=== PATIENT | female | born 1985 | race African-American/Black ===

== ENCOUNTER 2016-10-01 09:05 | Emergency (ER) | payer MEDICAID, OTHER ==
[~2016-10-01] VITALS: Ht 157.5 cm; Wt 80.0 kg
[~2016-10-01 09:05] MED LIST: AMLO5TAB22 PO; CYCL-36 PO; NAPR-576 PO
[2016-10-01 09:07] VITALS: BP 178/90; PULSE 84; RESP 16; TEMP 97.9; O2SAT 95
[2016-10-01] MEDS ORDERED: AMLO2.5T PO (09:18)
--- NOTE | 2016-10-01 09:37 | PD ---
HPI Chief Complaint: Headache Time Seen by Provider: 09:27 Travel History International Travel<30 days: No Contact w/Intl Traveler<30days: No Traveled to known affect area: No History of Present Illness HPI The patient was seen and examined in the presence of the nurse. This patient complains of migraine headache. She has a right sided throbbing with nausea and vomiting. This is very typical of her chronic migraine headache. No head injury or fever or neck pain. No alleviating factors. Symptoms severity is moderate. Duration is 3 days PFSH Past Medical History Asthma: Yes Blood Disorders: No Anxiety: No Depression: Yes Cancer: No Cardiovascular Problems: Yes (HTN) Diminished Hearing: No Endocrine: No Gastrointestinal Disorders: No Genitourinary: Yes (h/o utis) Hypertension: Yes Immune Disorder: No Implanted Vascular Access Dvce: Yes Kidney Stones: Yes Musculoskeletal: No Neurologic: No Psychiatric: Yes Reproductive: No Respiratory: No Immunizations Current: No Migraines: Yes Sleep Apnea: No Thyroid Disease: No ?: Not LMP: 09/13/16 Menopausal: No : 2 Para: 1 Miscarriage: 1 Dilation and Curettage (D&C): Yes Past Surgical History Surgical History: No Previous Surgery Abdominal Surgery: No AICD: No Arteriovenous Shunt: No Cardiac Surgery: No Ear Surgery: No Endocrine Surgery: No Eye Surgery: No Genitourinary Surgery: No Gynecologic Surgery: No Insulin Pump: No Joint Replacement: No Oral Surgery: No Pacemaker: No Thoracic Surgery: No Other Surgery: No Social History Alcohol Use: No Tobacco Use: No Substance Use: No Allergies-Medications (Allergen,Severity, Reaction): Coded Allergies: Penicillin (Verified Allergy, Severe, Rash, 07/29/15) Amoxicillin (Verified Allergy, Intermediate, Rash, 07/29/15) Reported Meds & Prescriptions Reported Meds & Active Scripts Active Reported Amlodipine (Amlodipine Besylate) 2.5 Mg Tab 2.5 Mg PO DAILY Review of Systems General / Constitutional: No: Fever Eyes: No: Visual changes HENT: Positive: Headaches Cardiovascular: No: Chest Pain or Discomfort Respiratory: No: Shortness of Breath Gastrointestinal: Positive: Nausea, Vomiting, No: Abdominal Pain Genitourinary: No: Dysuria Musculoskeletal: No: Pain Skin: No Rash Neurologic: Positive: Headache, No: Weakness Psychiatric: No: Depression Endocrine: No: Polydipsia Hematologic/Lymphatic: No: Easy Bruising Physical Exam Narrative GENERAL: Well-nourished, well-developed patient with headache and nausea . SKIN: Focused skin assessment reveals no rash and nodules. Skin is Warm and dry. HEAD: Atraumatic. Normocephalic. EYES: Pupils equal and round. No scleral icterus. No injection or drainage. ENT: No nasal bleeding or discharge. Mucous membranes pink and moist. Throat clear NECK: Trachea midline. No JVD. No meningeal signs CARDIOVASCULAR: Regular rate and rhythm. No murmur appreciated. RESPIRATORY: No accessory muscle use. Clear to auscultation. Breath sounds equal bilaterally. GASTROINTESTINAL: Abdomen soft, non-tender, nondistended. Hepatic and splenic margins not palpable. MUSCULOSKELETAL: No obvious deformities. No clubbing. No cyanosis. No edema. NEUROLOGICAL: Awake and alert. No obvious cranial nerve deficits. Motor grossly within normal limits. Normal speech. PSYCHIATRIC: Appropriate mood and affect; insight and judgment normal. Data Data Last Documented VS Vital Signs Date Time Temp Pulse Resp B/P Pulse Ox O2 Delivery O2 Flow Rate FiO2 10/01/16 09:16 18 Room Air 10/01/16 09:07 97.9 84 178/90 95 Orders Ondansetron Inj (Zofran Inj) (10/01/16 09:45) Morphine Inj (Morphine Inj) (10/01/16 09:45) Sodium Chlor 0.9% 1000 Ml Inj (Ns 1000 M (10/01/16 09:45) MDM Medical Decision Making Medical Screen Exam Complete: Yes Emergency Medical Condition: Yes Medical Record Reviewed: Yes Differential Diagnosis Differential diagnosis includes migraine, tension headache, cluster headache, meningitis. Narrative Course I have reviewed the patient's electronic medical record. Patient's been seen here for migraine headache multiple times over the years Patient is neurologically intact. Sedation not consistent with subarachnoid hemorrhage or stroke or meningitis. There was no thunderclap onset. I don't feel imaging is indicated at this time I gave her injection of Zofran and morphine as well as a liter of saline IV On recheck she is sound asleep Stable for outpatient follow-up Diagnosis Primary Impression: Migraine headache Qualified Code: G43.109 - Migraine with aura and without status migrainosus, not intractable Additional Instructions: The patient was advised to follow up with their physician and return if they worsen. Med/Other Pt SpecificInfo: Other Disposition: 01 DISCHARGE HOME Condition: Stable Piyush Montaño MD Oct 01, 2016 09:37
[2016-10-01] MEDS ORDERED: ONDANSETRON HCL 4 MG/2 ML VIAL IV ONE (09:45)
[2016-10-01] MEDS ORDERED: MORPHINE SULFATE 4 MG/ML INJ IV PUSH ONE (09:45)
[2016-10-01] MEDS ORDERED: SODIUM CHLOR 0.9% 1000 ML INJ 1,000 ML IV ONE (09:45)
[2016-10-01 12:01] VITALS: BP 134/92
== END 2016-10-01 12:08 | disposition home or self-care (01) ==
LOC: NEPD 09:05
DX: G43.109 Migraine with aura, not intractable, without status migrainosus (principal)
CPT/HCPCS: 96374; 96375; 99284; J2270; J2405; J7030

== ENCOUNTER 2016-11-28 09:02 | Emergency (ER) | payer MEDICAID ==
[~2016-11-28] VITALS: Ht 157.5 cm; Wt 75.0 kg
[~2016-11-28 09:02] MED LIST changes: +AMLO2.5T PO; -AMLO5TAB22 PO; -CYCL-36 PO; -NAPR-576 PO
[2016-11-28 09:05] VITALS: BP 198/103; PULSE 114; RESP 15; TEMP 98.7; O2SAT 99
--- NOTE | 2016-11-28 10:28 | PD ---
HPI Chief Complaint: Syncope/Near-Syncope Time Seen by Provider: 10:08 Travel History International Travel<30 days: No Contact w/Intl Traveler<30days: No Traveled to known affect area: No History of Present Illness HPI patient is a 30-year-old female presents emergency department for second evaluation of syncope in the past few days. Patient states that she feels headache coming on and then has been passing out and this is happened 3 days in a row at least 3 times a day. He states he is only out for a few seconds at a time. Patient states his been happening over the past 3 days and is causing her some anxiety. She was worked up at [facility] yesterday and states she has work and EKG and a CAT scan all of which was negative and she was told "there is nothing wrong with me" and discharge. Symptoms are moderate, resolved , no associated signs and symptoms, duration is 3 days. Patient denies and chest pain shortness of breath abdominal pain nausea vomiting diarrhea headaches or blurred vision or focalized weakness. PFSH Past Medical History Asthma: Yes Blood Disorders: No Anxiety: No Depression: Yes Cancer: No Cardiovascular Problems: Yes (HTN) Diminished Hearing: No Endocrine: No Gastrointestinal Disorders: No Genitourinary: Yes (h/o utis) Hypertension: Yes Immune Disorder: No Implanted Vascular Access Dvce: Yes Kidney Stones: Yes Musculoskeletal: No Neurologic: No Psychiatric: Yes Reproductive: No Respiratory: No Immunizations Current: No Migraines: Yes Sleep Apnea: No Thyroid Disease: No ?: Not LMP: 11/06/16 Menopausal: No : 2 Para: 1 Miscarriage: 1 Dilation and Curettage (D&C): Yes Past Surgical History Abdominal Surgery: No AICD: No Arteriovenous Shunt: No Cardiac Surgery: No Ear Surgery: No Endocrine Surgery: No Eye Surgery: No Genitourinary Surgery: No Gynecologic Surgery: No Insulin Pump: No Joint Replacement: No Oral Surgery: No Pacemaker: No Thoracic Surgery: No Other Surgery: No Social History Alcohol Use: No Tobacco Use: Yes (ECIG) Substance Use: No Allergies-Medications (Allergen,Severity, Reaction): Coded Allergies: penicillin G (Unverified Allergy, Severe, Rash, 11/28/16) amoxicillin (Unverified Allergy, Intermediate, Rash, 11/28/16) Reported Meds & Prescriptions Reported Meds & Active Scripts Active Reported Amlodipine (Amlodipine Besylate) 2.5 Mg Tab 2.5 Mg PO DAILY Review of Systems Except as stated in HPI: all other systems reviewed are Neg Physical Exam Narrative GENERAL: Well-developed well-nourished no obvious distress SKIN: Focused skin assessment warm/dry. HEAD: Atraumatic. Normocephalic. EYES: Pupils equal and round. No scleral icterus. No injection or drainage. ENT: No nasal bleeding or discharge. Mucous membranes pink and moist. NECK: Trachea midline. No JVD. CARDIOVASCULAR: Regular rate and rhythm. No murmur appreciated. RESPIRATORY: No accessory muscle use. Clear to auscultation. Breath sounds equal bilaterally. GASTROINTESTINAL: Abdomen soft, non-tender, nondistended. Hepatic and splenic margins not palpable. MUSCULOSKELETAL: No obvious deformities. No clubbing. No cyanosis. No edema. NEUROLOGICAL: Awake and alert. Cranial nerves II through XII are grossly intact and nonfocal, 5 out of 5 strength in all 4 extremities, cerebellar testing negative. PSYCHIATRIC: Appropriate mood and affect; insight and judgment normal. Data Data Last Documented VS Vital Signs Date Time Temp Pulse Resp B/P (MAP) Pulse Ox O2 Delivery O2 Flow Rate FiO2 11/28/16 10:52 11/28/16 09:05 98.7 114 15 99 Orders Orders Electrocardiogram (11/28/16 ) Diphenhydramine (Benadryl) (11/28/16 10:30) Prochlorperazine Maleate (Compazine) (11/28/16 10:30) MDM Medical Decision Making Medical Screen Exam Complete: Yes Emergency Medical Condition: Yes Differential Diagnosis Syncopal episode, arrhythmia, brain mass is already been excluded, Narrative Course Patient roomed in the emergency department, she appears well and in no distress. Reassuring physical exam. She is are he had ED workup for this yesterday. I discussed with her she needs to follow-up with a neurologist and a chemical operations and training and a primary care physician at this point. I made referrals for her at this time there is no indication for additional workup and she stable for discharge. EKG was pursued here showing normal sinus rhythm without any abnormal intervals. Discussed return to ED criteria. He is not currently having headache. Diagnosis Primary Impression: Migraine headache Qualified Codes: G43.909 - Migraine, unspecified, not intractable, without status migrainosus Additional Impression: Syncope Disposition: DISCHARGE HOME Condition: Stable Serafin Colon MD Nov 28, 2016 10:28
[2016-11-28] MEDS ORDERED: PROCHLORPERAZINE MALEATE 10 MG TAB PO ONE (10:30)
[2016-11-28] MEDS ORDERED: diphenhydrAMINE HCL 25 MG CAP PO ONE (10:30)
--- NOTE | 2016-11-28 14:41 | EKG ---
Date Performed: 11/28/2016 Time Performed: 09:24:16 PTAGE: 30 years EKG: SINUS BRADYCARDIA BORDERLINE ECG PREVIOUS TRACING : 07/03/2009 11.01 Compared to prior tracing no significant change DOCTOR: Eugene Lea Interpretating Date/Time 11/28/2016 14:39:50
== END 2016-11-28 10:55 | disposition home or self-care (01) ==
LOC: NEPD 09:02
DX: G43.909 Migraine, unspecified, not intractable, without status migrainosus (principal)
CPT/HCPCS: 93005; 99283

== ENCOUNTER 2017-04-26 07:37 | Emergency (ER) | payer MEDICAID ==
[~2017-04-26] VITALS: Ht 157.5 cm; Wt 72.5 kg
[2017-04-26 07:40] VITALS: BP 161/73; TEMP 98.2; O2SAT 100
[2017-04-26] MEDS ORDERED: SILVER SULFADIAZINE 1% CR 50 GM JAR TOPICAL ONE (08:00)
--- NOTE | 2017-04-26 08:04 | PD ---
HPI Chief Complaint: Burn Time Seen by Provider: 07:43 Travel History International Travel<30 days: No Contact w/Intl Traveler<30days: No Traveled to known affect area: No History of Present Illness HPI 31-year-old female presents emergency department with second- degree burn to the left dorsal medial wrist which occurred 2 days prior to today. Patient states she was at work and had hot grease fall on her left wrist. The wound was cleansed and covered with an ointment at that time. She states it was more swollen but has improved. She has not been seen by medical provider prior to this visit. Pain is currently 7 out of 10. There is no drainage from the wound. There is no blisters currently. There is no signs of infection. Her chief complaint is the pain which is worse with movement. It is not circumferential. She is unsure of her last tetanus shot. PFSH Past Medical History Asthma: Yes Blood Disorders: No Anxiety: No Depression: Yes Cancer: No Cardiovascular Problems: Yes (HTN) Diminished Hearing: No Endocrine: No Gastrointestinal Disorders: No Genitourinary: Yes (h/o utis) Hypertension: Yes Immune Disorder: No Implanted Vascular Access Dvce: Yes Kidney Stones: Yes Musculoskeletal: No Neurologic: No Psychiatric: Yes Reproductive: No Respiratory: No Immunizations Current: No Migraines: Yes Sleep Apnea: No Thyroid Disease: No Tetanus Vaccination: Unknown Influenza Vaccination: No ?: Not Menopausal: No : 2 Para: 1 Miscarriage: 1 Dilation and Curettage (D&C): Yes Past Surgical History Surgical History: No Previous Surgery Abdominal Surgery: No AICD: No Arteriovenous Shunt: No Cardiac Surgery: No Ear Surgery: No Endocrine Surgery: No Eye Surgery: No Genitourinary Surgery: No Gynecologic Surgery: No Insulin Pump: No Joint Replacement: No Oral Surgery: No Pacemaker: No Thoracic Surgery: No Other Surgery: No Social History Alcohol Use: No Tobacco Use: No Substance Use: No Allergies-Medications (Allergen,Severity, Reaction): Coded Allergies: penicillin G (Unverified Allergy, Severe, Rash, 04/26/17) amoxicillin (Unverified Allergy, Intermediate, Rash, 04/26/17) Reported Meds & Prescriptions Reported Meds & Active Scripts Active Keflex (Cephalexin) 500 Mg Capsule 500 Mg PO Q8H Ibuprofen 600 Mg Tab 600 Mg PO Q6H PRN Silvadene Topical (Silver Sulfadiazine) 1 % Cream 1 Applic TOPICAL DIRECTED Review of Systems Except as stated in HPI: all other systems reviewed are Neg General / Constitutional: No: Fever Eyes: No: Visual changes HENT: No: Headaches Cardiovascular: No: Chest Pain or Discomfort Respiratory: No: Shortness of Breath Gastrointestinal: No: Abdominal Pain Genitourinary: No: Dysuria Musculoskeletal: No: Pain Skin: Positive Lesions (See history of present illness per), No Rash Neurologic: No: Weakness Psychiatric: No: Depression Endocrine: No: Polydipsia Hematologic/Lymphatic: No: Easy Bruising Physical Exam Narrative GENERAL: Patient appears in mild distress. SKIN: Warm and dry. Normal color. Normal turgor. Patient has a dry appearing second degree burn, with no active blistering, to the left dorsal medial wrist. It measures 6 cm x 3.5 cm in an oblong distribution. There is no signs of cellulitis. There is no drainage. It is not circumferential. HEAD: Atraumatic. Normocephalic. EYES: Pupils equal and round. No scleral icterus. No injection or drainage. ENT: No nasal bleeding or discharge. Mucous membranes pink and moist. Pharynx is clear. NECK: Trachea midline. Supple. CARDIOVASCULAR: Regular rate and rhythm. RESPIRATORY: No accessory muscle use. Clear to auscultation. Breath sounds equal bilaterally. MUSCULOSKELETAL: Extremities without clubbing, cyanosis, or edema. No obvious deformities. Range of motion is full and equal bilaterally. NEUROLOGICAL: Awake and alert. No obvious cranial nerve deficits. Motor grossly within normal limits. Five out of 5 muscle strength in the arms and legs. Normal speech. PSYCHIATRIC: Appropriate mood and affect; insight and judgment normal. Data Data Last Documented VS Vital Signs Date Time Temp Pulse Resp B/P (MAP) Pulse Ox O2 Delivery O2 Flow Rate FiO2 04/26/17 07:40 98.2 78 20 161/73 (102) 100 Orders Orders Silver Sulfadia 1% Crm (50 Gm) (Silvaden (04/26/17 08:00) Wound Care (04/26/17 07:54) Tetanus/Diphtheria Tox Adult (Tetanus/Di (04/26/17 08:15) MDM Medical Decision Making Medical Screen Exam Complete: Yes Emergency Medical Condition: Yes Differential Diagnosis Workplace injury. Second-degree burn. Need for tetanus. Narrative Course Patient is given tetanus 0.5 mg IM Burn dressings applied consisting of Silvadene and nonstick dressing. Patient is given a prescription for Silvadene to be applied once to twice daily with dressing change. Patient should maintain dressing to the area for the next week. Patient is given ibuprofen 600 mg 4 times daily as needed for pain #40. Patient also given Keflex 500 mg 3 times daily 10 days. Work note is given for the next week. Diagnosis Primary Impression: Work related injury Additional Impression: Second degree burn of left wrist Qualified Codes: T23.272A - Burn of second degree of left wrist, initial encounter Referrals: Primary Care Physician Patient Instructions: General Instructions, Second Degree Burn (ED), Tetanus ( DC) Departure Forms: Work Release Enter return to work date: Apr 26, 2017 Special Instructions: Patient is to keep left wrist clean, and dressed for the next 7 days secondary to her burn. Additional Instructions: Patient is given tetanus 0.5 mg IM Burn dressings applied consisting of Silvadene and nonstick dressing. Patient is given a prescription for Silvadene to be applied once to twice daily with dressing change. Patient should maintain dressing to the area for the next week. Patient is given ibuprofen 600 mg 4 times daily as needed for pain #40. Patient also given Keflex 500 mg 3 times daily 10 days. Work note is given for the next week. Med/Other Pt SpecificInfo: Prescription(s) given Scripts Cephalexin (Keflex) 500 Mg Capsule 500 MG PO Q8H for Infection, #30 CAP 0 Refills Prov: Jaquelin Cook MD 04/26/17 Ibuprofen (Ibuprofen) 600 Mg Tab 600 MG PO Q6H Y for Pain/Inflammation, #40 TAB 0 Refills Prov: Jaquelin Cook MD 04/26/17 Silver Sulfadiazine Topical (Silvadene Topical) 1 % Cream 1 APPLIC TOPICAL DIRECTED for Wound Management, #50 GM 0 Refills Prov: Jaquelin Cook MD 04/26/17 Disposition: 01 DISCHARGE HOME Condition: Stable Dane Sy Apr 26, 2017 08:04
[2017-04-26] MEDS ORDERED: TETANUS/DIPHTHERIA TOXOID ADULT 0.5 ML VIAL IM ONE (08:15)
[2017-04-26] MEDS ORDERED: CEPH-460 PO (08:59)
[2017-04-26] MEDS ORDERED: SILV1CRE20 TOPICAL (08:59)
[2017-04-26] MEDS ORDERED: IBUP-232 PO (08:59)
== END 2017-04-26 09:15 | disposition home or self-care (01) ==
LOC: NEPD 07:37
DX: T23.272A Burn of second degree of left wrist, initial encounter (principal); X10.2XXA Contact with fats and cooking oils, initial encounter; Y99.0 Civilian activity done for income or pay; Z23 Encounter for immunization
CPT/HCPCS: 16020; 90471; 90714